=== PATIENT | female | born 1970 | race Caucasian/White ===

== ENCOUNTER → 2022-03-16 11:51 | Outpatient (BNVA) | payer OTHER, SELFPAY | PROVIDERS: Visit Provider Psychiatry & Neurology Psychiatry | DX: Z79.899 Other long term (current) drug therapy (principal) | CPT/HCPCS: 80053; 80061; 83036; 84443; 85025 ==

== ENCOUNTER → 2022-12-28 13:24 | Outpatient (BNVA) | payer MEDICAID, SELFPAY | PROVIDERS: Referring Provider Psychiatry & Neurology Psychiatry; Visit Provider Psychiatry & Neurology Psychiatry | DX: F32.A Depression, unspecified (principal); Z79.899 Other long term (current) drug therapy | CPT/HCPCS: 80061; 83036 ==

== ENCOUNTER → 2023-08-24 14:56 | Outpatient (BNVA) | payer MEDICAID, SELFPAY ==
[2023-01-17 15:52] VITALS: BP 141/99; BMI 33.9
== END ==
PROVIDERS: PCP Nurse Practitioner; Visit Provider Nurse Practitioner
DX: Z01.419 Encounter for gynecological examination (general) (routine) without abnormal findings (principal); N89.8 Other specified noninflammatory disorders of vagina
CPT/HCPCS: 87070; 87205

== ENCOUNTER → 2023-08-25 | Outpatient (BNVA) | payer MEDICAID, SELFPAY ==
[2023-01-17 15:52] VITALS: BP 141/99; BMI 33.9
== END ==
PROVIDERS: PCP Nurse Practitioner; Visit Provider Nurse Practitioner
DX: Z01.419 Encounter for gynecological examination (general) (routine) without abnormal findings (principal); N89.8 Other specified noninflammatory disorders of vagina
CPT/HCPCS: 87491; 87591

== ENCOUNTER → 2024-01-18 14:38 | Outpatient (BNVA) | payer OTHER, SELFPAY ==
[2023-01-17 15:52] VITALS: BP 141/99; BMI 33.9
== END ==
PROVIDERS: PCP Nurse Practitioner; Visit Provider Psychiatry & Neurology Neurology
DX: F32.A Depression, unspecified (principal); Z79.899 Other long term (current) drug therapy
CPT/HCPCS: 80061; 83036; 84443

== ENCOUNTER → 2024-01-24 09:58 | Outpatient (BNVA) | payer MEDICAID, OTHER, SELFPAY ==
[2024-01-23 14:53] VITALS: BP 134/90; BMI 34.2
== END ==
PROVIDERS: PCP Nurse Practitioner; Visit Provider Nurse Practitioner
DX: R32 Unspecified urinary incontinence (principal); N39.0 Urinary tract infection, site not specified
CPT/HCPCS: 81000; 87086

== ENCOUNTER → 2025-01-21 15:47 | Outpatient (BNVA) | payer MEDICAID, SELFPAY ==
[2024-01-23 14:53] VITALS: BP 134/90; BMI 34.2
== END ==
PROVIDERS: PCP Family Medicine; Referring Provider Psychiatry & Neurology Psychiatry; Visit Provider Psychiatry & Neurology Psychiatry
DX: Z79.899 Other long term (current) drug therapy (principal); F31.9 Bipolar disorder, unspecified
CPT/HCPCS: 80061; 83036